=== PATIENT | male | born 1995 ===

== ENCOUNTER 2024-11-18 04:58 | Inpatient (IN) | payer OTHER ==
[~2024-11-18] VITALS: Ht 182.9 cm; Wt 137.1 kg
--- NOTE | 2024-11-18 06:54 | ED.PDOC ---
History of Present Illness HPI Comments 29-year-old male presents to the ER with prior medical history of a possibility history of kidney stones and chief complaint of pelvic pain. Patient Reports on urinating 0330 this morning, then 0400 the patient had right pelvic pain. The patient is assumes the the pain is due from the kidney stones. Denies chills, fever, N/V/D, SOB, CP. No other associated symptoms, modifiers, recent injuries or sick contacts present at this time. Chief Complaint: Pelvic Pain Time Seen by MD: 06:30 Reviewed Notes: Nurses Notes, Medications, Allergies Allergies: Coded Allergies: NO KNOWN ALLERGIES (Unverified , 11/18/24) Information Source: Patient Mode of Arrival: Ambulatory Severity: Moderate Timing: Hours Duration: Since onset, Hours Prehospital treatment: None Past Medical History Past Medical History (Other): Possible history of kidney stones Surgical History: Denies all surgeries Family History Family History: Reviewed,noncontributory to illness, Unknown Social History Smoker: Non-Smoker Alcohol: Denies ETOH Use Drugs: Denies Drug Use Lives In: Home Constitutional: denies: chills, diaphoresis, fatigue, fever, malaise, sweats, weakness, others EENTM: denies: blurred vision, double vision, ear bleeding, ear discharge, ear drainage, ear pain, ear ringing, eye pain, eye redness, hearing loss, mouth pain, mouth swelling, nasal discharge, nose bleeding, nose congestion, nose pain, photophobia, tearing, throat pain, throat swelling, voice changes, others Respiratory: denies: cough, hemoptysis, orthopnea, SOB at rest, shortness of breath, SOB with excertion, stridor, wheezing, others Cardiovascular: denies: chest pain, dizzy spells, diaphoresis, Dyspnea on exertion, edema, irregular heart beat, left arm pain, lightheadedness, palpitations, PND, syncope, others Gastrointestinal: denies: abdomen distended, abdominal pain, blood streaked bowels, constipated, diarrhea, dysphagia, difficulty swallowing, hematemesis, melena, nausea, poor appetite, poor fluid intake, rectal bleeding, rectal pain, vomiting, others Genitourinary: reports: others (Pelvic pain); denies: burning, dysuria, flank pain, frequency, hematuria, incontinence, penile discharge, penile sore, pain, testicle pain, testicle swelling, urgency Neurological: denies: dizziness, fainting, headache, left sided numbness, left sided weakness, numbness, paresthesia, pre-existing deficit, right sided numbness, right sided weakness, seizure, speech problems, tingling, tremors, weakness, others Musculoskeletal: denies: back pain, gout, joint pain, joint swelling, muscle pain, muscle stiffness, neck pain, others Integumetry: denies: bruises, change in color, change in hair/nails, dryness, laceration, lesions, lumps, rash, wounds, others Allergic/Immunocompromised: denies: Difficulty Healing, Frequent Infections, Hives, Itching, others Hematologic/Lymphatic: denies: anemia, blood clots, easy bleeding, easy bruising, swollen glands, others Endocrine: denies: excessive hunger, excessive sweating, excessive thirst, excessive urination, flushing, intolerance to cold, intolerance to heat, unexplained weight gain, unexplained weight loss, others Psychiatric: denies: anxiety, bipolar disorder, depression, hopeless, panic disorder, schizophrenia, sleepless, suicidal, others All Other Systems: Reviewed and Negative Physical Exam General Appearance: Moderate Distress, Obese HEENT: Normal ENT Inspection, Pharynx Normal, TMs Normal Neck: Full Range of Motion, Non-Tender, Normal, Normal Inspection Respiratory: Chest Non-Tender, Lungs Clear, No Accessory Muscle Use, No Respira tory Distress, Normal Breath Sounds Cardiovascular: No Edema, No JVD, No Murmur, No Gallop, Normal Peripheral Pulses, Regular Rate/Rhythm Breast Exam: Deferred Gastrointestinal: Diffuse, No Organomegaly, No Pulsatile Mass, Normal Bowel Sounds, Soft Genitalia: Deferred Pelvic: Deferred Rectal: Deferred Extremities: No calf tenderness, Normal capillary refill, Normal inspection, Normal range of motion, Non-tender, No pedal edema Musculoskeletal : Apperance: Normal Neurologic: Alert, 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 Was a procedure done?: No Differential Dx Considerations may include: Kidney stone Electrolyte imbalance X-Ray, Labs, Meds, VS Vital Signs Date Time Temp Pulse Resp B/P (MAP) Pulse Ox O2 Delivery O2 Flow Rate FiO2 11/18/24 07:56 79 19 96 Room Air* 0 21 11/18/24 07:27 64 17 139/77 (97) 95 11/18/24 05:07 98.4 74 16 151/88 (109) 98 98.4 Lab Test 11/18/24 07:00 11/18/24 05:47 Range/Units White Blood Count 6.4 4.4-10.8 10^3/uL Red Blood Count 5.56 4.5-5.90 10^6/uL Hemoglobin 15.7 13.5-17.5 g/dL Hematocrit 45.4 41.0-53.0 % Mean Corpuscular Volume 81.5 80.0-100.0 fL Mean Corpuscular Hemoglobin 28.2 28.0-32.0 pg Mean Corpuscular Hemoglobin Concent 34.6 32.0-36.0 g/dL Red Cell Distribution Width 13.6 11.8-14.3 % Platelet Count 290 140-450 10^3/uL Mean Platelet Volume 6.5 L 6.9-10.8 fL Neutrophils (%) (Auto) 53.8 37.0-80.0 % Lymphocytes (%) (Auto) 36.4 10.0-50.0 % Monocytes (%) (Auto) 6.7 0.0-12.0 % Eosinophils (%) (Auto) 2.4 0.0-7.0 % Basophils (%) (Auto) 0.7 0.0-2.0 % Neutrophils # (Auto) 3.5 1.6-8.6 10 ^3/uL Lymphocytes # (Auto) 2.3 0.4-5.4 10 ^3/uL Monocytes # (Auto) 0.4 0-1.3 10 ^3/uL Eosinophils # (Auto) 0.2 0-0.8 10 ^3/uL Basophils # (Auto) 0 0-0.2 10 ^3/uL Nucleated Red Blood Cells 0.1 % Sodium Level 141 136-145 mmol/L Potassium Level 4.2 3.5-5.1 mmol/L Chloride Level 107 98-107 mmol/L Carbon Dioxide Level 27 20-31 mmol/L Anion Gap 7 5-15 Blood Urea Nitrogen 14 9-23 mg/dL Creatinine 0.89 0.700-1.30 mg/dL Glomerular Filtration Rate Calc 118 >90 mL/min BUN/Creatinine Ratio 15.7 10.0-20.0 Serum Glucose 106 74-106 mg/dL Calcium Level 10.2 8.7-10.4 mg/dL Urine Color Pending Urine Clarity Pending Urine pH Pending Urine Specific [place] Pending Urine Protein Pending Urine Ketones Pending Urine Blood Pending Urine Nitrite Pending Urine Bilirubin Pending Urine Urobilinogen Pending Urine Leukocyte Esterase Pending Urine RBC Pending Urine Microscopic WBC Pending Urine Squamous Epithelial Cells Pending Urine Bacteria Pending Urine Glucose Pending Current Medications Medications (Trade) Dose Ordered Sig/Ban Route Start Time Stop Time Status Last Admin Sodium Chloride 1,000 ml @ 1,000 mls/hr Q1H ONCE IV 11/18/24 07:00 11/18/24 07:59 DC 11/18/24 07:50 Ketorolac Tromethamine (Toradol Injection) 30 mg ONCE ONCE IV 11/18/24 07:00 11/18/24 07:01 DC 11/18/24 07:54 Ondansetron HCl (Zofran) 4 mg ONCE ONCE IV 11/18/24 07:00 11/18/24 07:01 DC 11/18/24 07:50 Patient alert. Complaining of abdominal pain. Vitals stable. Answering questions. Establish intravenous access. Was given fluids. Was given Toradol. Was given Zofran. WBC within normal limits. Hemoglobin within normal limits. Possible kidney stone. Explained to the patient. Continue monitoring. Time of 1ST Reevaluation: 07:00 Reevaluation 1ST: Unchanged Patient Education/Counseling: Diagnosis, Treatment, Prognosis Family Education/Counseling: No Family Present SEPSIS Sepsis Screen Date sepsis recognized/suspect: Nov 18, 2024 Time Sepsis recognized/suspect: 0502 Recent Procedure: No On Antibiotic Therapy: No Respiratory Rate >20: No Heart Rate >90: No Temp<36 C (96.8 F) or >38.3 C: No SBP <90 or MAP <65 mmHG: No New Acute Mental Status Change: No Is the patient on CPAP, BIPAP,: No Physician Orders Urinalysis (11/18/24 05:47) Chlamydia/Gc Amplification (11/18/24 05:47) Vital Signs Date Time Temp Pulse Resp B/P (MAP) Pulse Ox O2 Delivery O2 Flow Rate FiO2 11/18/24 07:56 79 19 96 Room Air* 0 21 11/18/24 07:27 64 17 139/77 (97) 95 11/18/24 05:07 98.4 74 16 151/88 (109) 98 98.4 Laboratory Tests Test 11/18/24 07:00 White Blood Count 6.4 10^3/uL (4.4-10.8) Medications Medications Dose Ordered Sig/Ban Route Start Time Stop Time Status Last Admin Dose Admin Ketorolac Tromethamine 30 mg ONCE ONCE IV 11/18/24 07:00 11/18/24 07:01 DC 11/18/24 07:54 Ondansetron HCl 4 mg ONCE ONCE IV 11/18/24 07:00 11/18/24 07:01 DC 11/18/24 07:50 Sodium Chloride 1,000 ml @ 1,000 mls/hr Q1H ONCE IV 11/18/24 07:00 11/18/24 07:59 DC 11/18/24 07:50 Departure 1 Departure Time of Disposition: 08:16 Impression: Primary Impression: Acute abdominal pain Disposition: 09 ADMITTED INPATIENT Admit to: Med Surg Condition: Guarded Critical Care Note Critical Care Time?: No Stability Stability form required: No Heart Score Heart Score: Heart Score Response (Comments) Value History N/A 0 EKG N/A 0 Age N/A 0 Risk Factors N/A 0 Troponin N/A 0 Total 0 I personally scribed for BRISSA GALDAMEZ MD ([email or web address]) on 11/18/24 at 06:53. Electronically submitted by Erwin Mcneill ([email or web address]). BRISSA GALDAMEZ MD Nov 18, 2024 06:53
[2024-11-18 07:16] LABS: Hematocrit 45.4 % (41.0-53.0); Hemoglobin 15.7 g/dL (13.5-17.5); Mean Corpuscular Hemoglobin 28.2 pg (28.0-32.0); Mean Corpuscular Volume 81.5 fL (80.0-100.0); Nucleated Red Blood Cells % 0.1 %
[2024-11-18 07:22] LABS: Chloride 107 mmol/L (98-107); Potassium 4.2 mmol/L (3.5-5.1); Sodium 141 mmol/L (136-145)
[2024-11-18 07:23] LABS: Anion Gap 7 (5-15); Calcium 10.2 mg/dL (8.7-10.4); Carbon Dioxide 27 mmol/L (20-31)
[2024-11-18 07:28] LABS: BUN/Creatinine Ratio 15.7 (10.0-20.0); Blood Urea Nitrogen 14 mg/dL (9-23); Glucose 106 mg/dL (74-106)
[2024-11-18] MEDS: ONDANSETRON HCL 4 MG/2 ML VIAL IV ONE (07:50)
[2024-11-18] MEDS: SODIUM CHLORIDE 0.9% 1,000 ML IV ONE ×3 (07:50→12:53)
[2024-11-18] MEDS: KETOROLAC TROMETH 30 MG/ML 1ML VIAL IV ONE (07:54)
[2024-11-18 07:56] VITALS: PULSE 79; RESP 19; O2SAT 96
[2024-11-18 08:16] LABS: Urine Amorphous Crystal FEW /hpf (None Seen); Urine Protein, UAD 1+ (Negative)
--- NOTE | 2024-11-18 09:13 | DVH ---
Exam: CT CT AB PEL WO CON-NO ORAL OR IV History: stone Comparison Study: None Technique: Multidetector spiral CT of the abdomen was performed from lung bases to pubic symphysis. I maging was performed without IV contrast. Axial, coronal and sagittal multiplanar reformats were obta ined from the axial data set by the technologist. Radiation Dose : 1. Abdomen/Pelvis: CTDIvol 26.83 mGy, DLP 1730.6 mGy*cm. Findings: Evaluation of solid organs is limited due to lack of intravenous contrast use. Lung Bases: No acute or significant lung base finding. Normal heart size. No pleural or pericardial effusion. Liver: Hepatic steatosis. Gallbladder and Biliary Tree: Unremarkable Spleen: Unremarkable Pancreas: The pancreas is grossly normal in appearance. Adrenal Glands: Unremarkable Kidneys: Left kidney is unremarkable. Moderate right hydroureteronephrosis with 0.3 cm obstructing s tone in the proximal right ureter (HU 189). Bladder: Grossly unremarkable for degree of distention. Bowel: The stomach is grossly normal in appearance. Small bowel and colon are normal in caliber and d istribution. The appendix is not visualized; however, no secondary findings of acute appendicitis melissa ntified. Ascites: Absent Lymphadenopathy: No mesenteric, retroperitoneal or periportal lymphadenopathy. Abdominal Wall and Mesentery: Small fat containing left inguinal hernia. Vasculature: The visualized abdominal aorta is normal in size and caliber. Evaluation of abdominal a nd pelvic vessels is limited due to lack of intravenous contrast. Pelvic Organs: Unremarkable Musculoskeletal: No aggressive focal bony lesions, acute fractures or dislocation. IMPRESSION: Moderate right hydroureteronephrosis with 0.3 cm obstructing stone in the proximal right ureter (HU 1 89).
[2024-11-18] MEDS ORDERED: KETOROLAC TROMETH 30 MG/ML 1ML VIAL IV PRN (11:45)
[2024-11-18] MEDS ORDERED: DOCUSATE SOD 100 MG CAP PO PRN (11:45)
[2024-11-18] MEDS ORDERED: ONDANSETRON HCL 4 MG/2 ML VIAL IV PRN (11:45)
[2024-11-18] MEDS ORDERED: HYDROcodone-ACET 5/325MG TAB PO PRN (11:45)
[2024-11-18] MEDS ORDERED: LOSA-534 PO (11:59)
--- NOTE | 2024-11-18 12:13 | DVHHP2 ---
History of Present Illness Reason for Visit: Pelvic pain History of Present Illness Norm Early is a 29-year-old male with past medical history of hypertension who came to the hospital for pelvic pain. Patient states the pain began about 0400 in his RLQ/pelvic area. He states the pain was severe and not improving prompting him to come to the hospital. About 2 months ago he was at the doctor and told he has a right sided kidney stone, but that it was not obstructing or causing problems at that time. Cardiovascular: HTN Past Surgical History: Tonsillectomy Family History: None Smoke: No ALCOHOL: none Drugs: None Lives: with Family Domestic Violence: Neg Review of Systems Constitutional: No: Fever, Chills, Sweats, Weakness, Malaise, Other Eyes: No: Pain, Vision change, Conjunctivae inflammation, Eyelid inflammation, Other, Redness ENT: No: Ear pain, Ear discharge, Nose pain, Nose discharge, Nose congestion, Mouth pain, Mouth swelling, Throat pain, Throat swelling, Other Respiratory: No: Cough, Dry, Shortness of breath, SOB with excertion, Wheezing, Hemoptysis, Pleuritic Pain, Sputum, Wheezing, Other Cardiovascular: No: Chest Pain, Palpitations, Orthopnea, Paroxysmal Noc. Dyspnea, Edema, Lt Headedness, Other Gastrointestinal: Abdominal Pain (pelvic/RLQ); No: Nausea, Vomiting, Diarrhea, Constipation, Melena, Hematochezia, Other Genitourinary: No Dysuria, No Frequency, No Incontinence, No Hematuria, No Retention, No Other Musculoskeletal: back pain (right flank); No: other, neck pain, shoulder pain, arm pain, hand pain, leg pain, foot pain Skin: No: Rash, Lesions, Jaundice, Bruising, Other Neurological: No: Weakness, Numbness, Incoordination, Change in speech, Confusion, Seizures, Other Allergies: Coded Allergies: NO KNOWN ALLERGIES (Unverified , 11/18/24) Medications Current Medications Medications Dose Ordered Sig/Ban Route Start Time Stop Time Status Last Admin Dose Admin Acetaminophen/ Hydrocodone Bitart 1 tab Q4HP PRN PO 11/18/24 11:45 UNV Ondansetron HCl 4 mg Q4HP PRN IV 11/18/24 11:45 UNV Docusate Sodium 100 mg BIDPRN PRN PO 11/18/24 11:45 UNV Acetaminophen 650 mg Q6HP PRN PO 11/18/24 11:45 UNV Ketorolac Tromethamine 30 mg Q6HPRN PRN IV 11/18/24 11:45 11/23/24 11:44 UNV Exam Vital Signs Vital Signs Date Time Temp Pulse Resp B/P (MAP) Pulse Ox O2 Delivery O2 Flow Rate FiO2 11/18/24 09:24 97.6 62 16 124/71 (88) 99 97.6 11/18/24 07:56 Room Air* 0 21 General Appearance: Alert, Oriented X3, Cooperative, mild distress HEENT: Atraumatic, PERRLA, Mucous membr. moist/pink Respiratory: Clear to auscultation, Normal air movement Cardiovascular: Regular rate, Normal S1, Normal S2, No murmurs Abdominal: Normal bowel sounds, Soft, No hepatospenomegaly, Other (RLQ/pelvic pain) Extremities: No clubbing, No cyanosis, No edema, Normal pulses Skin: No rashes, No breakdown, No significant lesion Neuro: Normal gait, Normal speech, Strength at 5/5 X4 ext Psych/Mental Status: Mental status NL, Mood NL Labs/Xrays Labs Test 11/18/24 07:00 11/18/24 05:47 Range/Units White Blood Count 6.4 4.4-10.8 10^3/uL Red Blood Count 5.56 4.5-5.90 10^6/uL Hemoglobin 15.7 13.5-17.5 g/dL Hematocrit 45.4 41.0-53.0 % Mean Corpuscular Volume 81.5 80.0-100.0 fL Mean Corpuscular Hemoglobin 28.2 28.0-32.0 pg Mean Corpuscular Hemoglobin Concent 34.6 32.0-36.0 g/dL Red Cell Distribution Width 13.6 11.8-14.3 % Platelet Count 290 140-450 10^3/uL Mean Platelet Volume 6.5 L 6.9-10.8 fL Neutrophils (%) (Auto) 53.8 37.0-80.0 % Lymphocytes (%) (Auto) 36.4 10.0-50.0 % Monocytes (%) (Auto) 6.7 0.0-12.0 % Eosinophils (%) (Auto) 2.4 0.0-7.0 % Basophils (%) (Auto) 0.7 0.0-2.0 % Neutrophils # (Auto) 3.5 1.6-8.6 10 ^3/uL Lymphocytes # (Auto) 2.3 0.4-5.4 10 ^3/uL Monocytes # (Auto) 0.4 0-1.3 10 ^3/uL Eosinophils # (Auto) 0.2 0-0.8 10 ^3/uL Basophils # (Auto) 0 0-0.2 10 ^3/uL Nucleated Red Blood Cells 0.1 % Sodium Level 141 136-145 mmol/L Potassium Level 4.2 3.5-5.1 mmol/L Chloride Level 107 98-107 mmol/L Carbon Dioxide Level 27 20-31 mmol/L Anion Gap 7 5-15 Blood Urea Nitrogen 14 9-23 mg/dL Creatinine 0.89 0.700-1.30 mg/dL Glomerular Filtration Rate Calc 118 >90 mL/min BUN/Creatinine Ratio 15.7 10.0-20.0 Serum Glucose 106 74-106 mg/dL Calcium Level 10.2 8.7-10.4 mg/dL Urine Color Yellow Yellow Urine Clarity Turbid H Clear Urine pH 6.0 5.0-9.0 Urine Specific [place] 1.031 1.001-1.035 Urine Protein 1+ H Negative Urine Ketones Negative Negative Urine Blood 3+ H Negative /uL Urine Nitrite Negative Negative Urine Bilirubin Negative Negative Urine Urobilinogen Normal Negative mg/dL Urine Leukocyte Esterase Negative Negative /uL Urine RBC 311 0 - 3 /hpf Urine Microscopic WBC 2 0-3 /HPF Urine Squamous Epithelial Cells None seen <5 /hpf Urine Amorphous Crystals Few None Seen /hpf Urine Bacteria None seen None Seen /hpf Urine Mucus Few None Seen Urine Glucose Normal Normal mg/dL Exam: CT CT AB PEL WO CON-NO ORAL OR IV Findings: Evaluation of solid organs is limited due to lack of intravenous contrast use. Lung Bases: No acute or significant lung base finding. Normal heart size. No pleural or pericardial effusion. Liver: Hepatic steatosis. Gallbladder and Biliary Tree: Unremarkable Spleen: Unremarkable Pancreas: The pancreas is grossly normal in appearance. Adrenal Glands: Unremarkable Kidneys: Left kidney is unremarkable. Moderate right hydroureteronephrosis with 0.3 cm obstructing stone in the proximal right ureter (HU 189). Bladder: Grossly unremarkable for degree of distention. Bowel: The stomach is grossly normal in appearance. Small bowel and colon are normal in caliber and distribution. The appendix is not visualized; however, no secondary findings of acute appendicitis identified. Ascites: Absent Lymphadenopathy: No mesenteric, retroperitoneal or periportal lymphadenopathy. Abdominal Wall and Mesentery: Small fat containing left inguinal hernia. Vasculature: The visualized abdominal aorta is normal in size and caliber. Evaluation of abdominal and pelvic vessels is limited due to lack of intravenous contrast. Pelvic Organs: Unremarkable Musculoskeletal: No aggressive focal bony lesions, acute fractures or dislocation. IMPRESSION: Moderate right hydroureteronephrosis with 0.3 cm obstructing stone in the proximal right ureter (HU 189). SEPSIS Sepsis Screen Date sepsis recognized/suspect: Nov 18, 2024 Time Sepsis recognized/suspect: 0502 Recent Procedure: No On Antibiotic Therapy: No Respiratory Rate >20: No Heart Rate >90: No Temp<36 C (96.8 F) or >38.3 C: No SBP <90 or MAP <65 mmHG: No New Acute Mental Status Change: No Is the patient on CPAP, BIPAP,: No Physician Orders Chlamydia/Gc Amplification (11/18/24 05:47) Ct Ab Pel Wo Con-No Oral Or Iv (11/18/24 08:17) Admit (11/18/24 11:44) Code Status (11/18/24 11:44) 2 Gm Sodium Diet (11/18/24 Lunch) Hydrocodone-Acet 5/325mg Tab ([place] 5/32 (11/18/24 11:45) Ondansetron Hcl (Zofran) (11/18/24 11:45) Docusate Sodium Capsule (Colace Capsule) (11/18/24 11:45) Complete Blood Count (11/19/24 04:00) Comprehensive Metabolic Panel (11/19/24 04:00) Condition: Serious (11/18/24 11:44) Acetaminophen Tablet (Tylenol Tablet) (11/18/24 11:45) Ketorolac Injection (Toradol Injection) (11/18/24 11:45) Sodium Chloride 0.9% (11/18/24 11:45) Sodium Chloride 0.9% (11/18/24 11:45) Tamsulosin Hydrochloride (Flomax) (11/18/24 11:45) Tamsulosin Hydrochloride (Flomax) (11/19/24 18:00) * Urology Consult (11/18/24 11:50) Vital Signs Date Time Temp Pulse Resp B/P (MAP) Pulse Ox O2 Delivery O2 Flow Rate FiO2 11/18/24 09:24 97.6 62 16 124/71 (88) 99 97.6 11/18/24 07:56 79 19 96 Room Air* 0 21 11/18/24 07:27 64 17 139/77 (97) 95 11/18/24 05:07 98.4 74 16 151/88 (109) 98 98.4 Laboratory Tests Test 11/18/24 07:00 White Blood Count 6.4 10^3/uL (4.4-10.8) Medications Medications Dose Ordered Sig/Ban Route Start Time Stop Time Status Last Admin Dose Admin Ketorolac Tromethamine 30 mg ONCE ONCE IV 11/18/24 07:00 11/18/24 07:01 DC 11/18/24 07:54 30 MG Ondansetron HCl 4 mg ONCE ONCE IV 11/18/24 07:00 11/18/24 07:01 DC 11/18/24 07:50 4 MG Sodium Chloride 1,000 ml @ 1,000 mls/hr Q1H ONCE IV 11/18/24 07:00 11/18/24 07:59 DC 11/18/24 07:50 1,000 MLS/HR Assessment/Plan Assessment/Plan Assessment: Hydronephrosis due to ureter obstruction, Renal calculi, Hypertension, Plan: Admit to Med-Surg, Urology consult, IV hydration, Flomax, Pain management, Consider IR consult if symptoms do not improve, Home medications reconciled, Plan discussed with: Patient My Orders Orders - STELLA AMAYA EQUIPMENT SPECIALIST Procedure Category Date Status Time Admit ADMIT 11/18/24 Transmitted 11:44 Code Status CODE 11/18/24 Transmitted 11:44 2 Gm Sodium Diet DIET 11/18/24 Transmitted Lunch Hydrocodone-Acet PHA 11/18/24 Logged 5/325mg Tab ([place] 11:45 Ondansetron Hcl PHA 11/18/24 Logged (Zofran) 11:45 Docusate Sodium PHA 11/18/24 Logged Capsule (Colace 11:45 Complete Blood Count LAB 11/19/24 Verified 04:00 Comprehensive LAB 11/19/24 Verified Metabolic Panel 04:00 Condition: Serious STEPHEN 11/18/24 In Process 11:44 Acetaminophen Tablet PHA 11/18/24 Logged (Tylenol Tablet) 11:45 Ketorolac Injection PHA 11/18/24 Logged (Toradol Injection) 11:45 Sodium Chloride 0.9% PHA 11/18/24 Logged 11:45 Sodium Chloride 0.9% PHA 11/18/24 Logged 11:45 Tamsulosin PHA 11/18/24 Logged Hydrochloride (Flomax) 11:45 Tamsulosin PHA 11/19/24 Logged Hydrochloride (Flomax) 18:00 * Urology Consult CONS 11/18/24 Transmitted 11:50 Date of Service: Nov 18, 2024 Billing Provider: STELLA AMAYA Common Visit Codes: [id number] INP/OBS CARE (MOD) STELLA AMAYA Nov 18, 2024 12:13
[2024-11-18 12:27] VITALS: BP 133/84; PULSE 54; RESP 16; TEMP 97.4; O2SAT 100
[2024-11-18] MEDS: TAMSULOSIN HYDROCHLORIDE 0.4 MG CAP PO ONE (12:52)
[2024-11-18 16:00] VITALS: BP 138/86; PULSE 63; RESP 16; TEMP 97.6; O2SAT 99
[2024-11-18 16:30] VITALS: BP 138/86; PULSE 63; RESP 16; TEMP 97.6; O2SAT 99
[2024-11-18] MEDS: ACETAMINOPHEN 325 MG TAB PO PRN (17:26)
[2024-11-18 20:00] VITALS: RESP 20
[2024-11-18 21:00] VITALS: BP 123/65; PULSE 70; RESP 17; TEMP 98; O2SAT 96
--- NOTE | 2024-11-18 23:07 | DVHINCON2 ---
Date of service: Nov 18, 2024 Referring Physician Hospitalist Reason for Consultation Hydronephrosis History of Present Illness 29-year-old male admitted to [facility] for chief complaint of pelvic pain. Patient Reports on urinating 0330 this morning, then 0400 the patient had right pelvic pain. The patient assumed the the pain is due from the kidney stones. Denies chills, fever, N/V/D, SOB, CP. No other associated symptoms, modifiers, recent injuries or sick contacts present at this time. Chief Complaint: Pelvic Pain Reviewed Notes: Nurses Notes, Medications, Allergies Allergies: Coded Allergies: NO KNOWN ALLERGIES (Unverified , 11/18/24) Information Source: Patient Mode of Arrival: Ambulatory Severity: Moderate Timing: Hours Duration: Since onset, Hours Prehospital treatment: None Past Medical History Possible history of kidney stones Family History: Cardiac disorder in father G8 FATHER Allergies: Coded Allergies: NO KNOWN ALLERGIES (Unverified , 11/18/24) Home Meds Reported Medications Losartan Potassium (Losartan Potassium) 50 Mg Tab, 1 TAB PO DAILY 11/18/24 Current Medications Current Medications Medications (Trade) Dose Ordered Sig/Ban Route PRN Reason Start Time Stop Time Status Last Admin Acetaminophen/ Hydrocodone Bitart (Royal 5/325MG Tab) 1 tab Q4HP PRN PO MODERATE PAIN (4-6 PAIN SCALE) 11/18/24 11:45 Ondansetron HCl (Zofran) 4 mg Q4HP PRN IV NAUSEA / VOMITING 11/18/24 11:45 Docusate Sodium (Colace Capsule) 100 mg BIDPRN PRN PO FOR CONSTIPATION 11/18/24 11:45 Acetaminophen (Tylenol Tablet) 650 mg Q6HP PRN PO PAIN SCALE 1-3 OR TEMP>100.4 11/18/24 11:45 11/18/24 17:26 Ketorolac Tromethamine (Toradol Injection) 30 mg Q6HPRN PRN IV SEVERE PAIN (7-10 PAIN SCALE) 11/18/24 11:45 11/23/24 11:44 Tamsulosin HCl (Flomax) 0.4 mg QPM PO 11/19/24 18:00 Losartan Potassium (Cozaar Tablet) 50 mg DAILY PO 11/19/24 10:00 Review of Systems Constitutional: denies: chills, diaphoresis, fatigue, fever, malaise, sweats, weakness, others EENTM: denies: blurred vision, double vision, ear bleeding, ear discharge, ear drainage, ear pain, ear ringing, eye pain, eye redness, hearing loss, mouth pain, mouth swelling, nasal discharge, nose bleeding, nose congestion, nose pain, photophobia, tearing, throat pain, throat swelling, voice changes, others Respiratory: denies: cough, hemoptysis, orthopnea, SOB at rest, shortness of breath, SOB with excertion, stridor, wheezing, others Cardiovascular: denies: chest pain, dizzy spells, diaphoresis, Dyspnea on exertion, edema, irregular heart beat, left arm pain, lightheadedness, palpitations, PND, syncope, others Gastrointestinal: denies: abdomen distended, abdominal pain, blood streaked bowels, constipated, diarrhea, dysphagia, difficulty swallowing, hematemesis, melena, nausea, poor appetite, poor fluid intake, rectal bleeding, rectal pain, vomiting, others Genitourinary: reports: others (Pelvic pain); denies: burning, dysuria, flank pain, frequency, hematuria, incontinence, penile discharge, penile sore, pain, testicle pain, testicle swelling, urgency Neurological: denies: dizziness, fainting, headache, left sided numbness, left sided weakness, numbness, paresthesia, pre-existing deficit, right sided numbness, right sided weakness, seizure, speech problems, tingling, tremors, weakness, others Musculoskeletal: denies: back pain, gout, joint pain, joint swelling, muscle pain, muscle stiffness, neck pain, others Integumetry: denies: bruises, change in color, change in hair/nails, dryness, laceration, lesions, lumps, rash, wounds, others Allergic/Immunocompromised: denies: Difficulty Healing, Frequent Infections, Hives, Itching, others Hematologic/Lymphatic: denies: anemia, blood clots, easy bleeding, easy bruising, swollen glands, others Endocrine: denies: excessive hunger, excessive sweating, excessive thirst, excessive urination, flushing, intolerance to cold, intolerance to heat, unexplained weight gain, unexplained weight loss, others Psychiatric: denies: anxiety, bipolar disorder, depression, hopeless, panic disorder, schizophrenia, sleepless, suicidal, others All Other Systems: Reviewed and Negative Vital Signs Vital Signs Date Time Temp Pulse Resp B/P (MAP) Pulse Ox O2 Delivery O2 Flow Rate FiO2 11/18/24 20:00 20 Room Air* 0 21 11/18/24 16:30 97.6 63 138/86 (103) 99 97.6 Physical Exam General Appearance: Moderate Distress, Obese HEENT: Normal ENT Inspection, Pharynx Normal, TMs Normal Neck: Full Range of Motion, Non-Tender, Normal, Normal Inspection Respiratory: Chest Non-Tender, Lungs Clear, No Accessory Muscle Use, No Respiratory Distress, Normal Breath Sounds Cardiovascular: No Edema, No JVD, No Murmur, No Gallop, Normal Peripheral Pulses, Regular Rate/Rhythm Breast Exam: Deferred Gastrointestinal: Diffuse, No Organomegaly, No Pulsatile Mass, Normal Bowel Sounds, Soft Genitalia: Deferred Pelvic: Deferred Rectal: Deferred Extremities: No calf tenderness, Normal capillary refill, Normal inspection, Normal range of motion, Non-tender, No pedal edema Musculoskeletal : Apperance: Normal Neurologic: Alert, independent consultant II-XII nml as Tested, No Motor Deficits, Normal Affect, Normal Mood, No Sensory Deficits Cerebellar Function: Normal Reflexes: Normal Skin: Dry, Normal Color, Warm Peripheral Pulses: 3+ Radial (R), 3+ Radial (L) Lymphatic: No Adenopathy Labs/Diagnostic Data Labs Test 11/18/24 07:00 11/18/24 05:47 Range/Units White Blood Count 6.4 4.4-10.8 10^3/uL Red Blood Count 5.56 4.5-5.90 10^6/uL Hemoglobin 15.7 13.5-17.5 g/dL Hematocrit 45.4 41.0-53.0 % Mean Corpuscular Volume 81.5 80.0-100.0 fL Mean Corpuscular Hemoglobin 28.2 28.0-32.0 pg Mean Corpuscular Hemoglobin Concent 34.6 32.0-36.0 g/dL Red Cell Distribution Width 13.6 11.8-14.3 % Platelet Count 290 140-450 10^3/uL Mean Platelet Volume 6.5 L 6.9-10.8 fL Neutrophils (%) (Auto) 53.8 37.0-80.0 % Lymphocytes (%) (Auto) 36.4 10.0-50.0 % Monocytes (%) (Auto) 6.7 0.0-12.0 % Eosinophils (%) (Auto) 2.4 0.0-7.0 % Basophils (%) (Auto) 0.7 0.0-2.0 % Neutrophils # (Auto) 3.5 1.6-8.6 10 ^3/uL Lymphocytes # (Auto) 2.3 0.4-5.4 10 ^3/uL Monocytes # (Auto) 0.4 0-1.3 10 ^3/uL Eosinophils # (Auto) 0.2 0-0.8 10 ^3/uL Basophils # (Auto) 0 0-0.2 10 ^3/uL Nucleated Red Blood Cells 0.1 % Sodium Level 141 136-145 mmol/L Potassium Level 4.2 3.5-5.1 mmol/L Chloride Level 107 98-107 mmol/L Carbon Dioxide Level 27 20-31 mmol/L Anion Gap 7 5-15 Blood Urea Nitrogen 14 9-23 mg/dL Creatinine 0.89 0.700-1.30 mg/dL Glomerular Filtration Rate Calc 118 >90 mL/min BUN/Creatinine Ratio 15.7 10.0-20.0 Serum Glucose 106 74-106 mg/dL Calcium Level 10.2 8.7-10.4 mg/dL Urine Color Yellow Yellow Urine Clarity Turbid H Clear Urine pH 6.0 5.0-9.0 Urine Specific [place] 1.031 1.001-1.035 Urine Protein 1+ H Negative Urine Ketones Negative Negative Urine Blood 3+ H Negative /uL Urine Nitrite Negative Negative Urine Bilirubin Negative Negative Urine Urobilinogen Normal Negative mg/dL Urine Leukocyte Esterase Negative Negative /uL Urine RBC 311 0 - 3 /hpf Urine Microscopic WBC 2 0-3 /HPF Urine Squamous Epithelial Cells None seen <5 /hpf Urine Amorphous Crystals Few None Seen /hpf Urine Bacteria None seen None Seen /hpf Urine Mucus Few None Seen Urine Glucose Normal Normal mg/dL PATIENT: MARIE ECHAVARRIA ACCT: [id number] UNIT: [id number] : 1995 LOC: ER ROOM / BED: / AGE / SEX: 29 / M ADM STATUS: REG ER SERVICE [id number] ORDERING PHYSICIAN: BRISSA GALDAMEZ MD PROCEDURE(s): ABPL - CT AB PEL WO CON-NO ORAL OR IV REASON: stone ORDER NUMBER(s): [id number], ACCESSION NUMBER(s): [id number] Exam: CT CT AB PEL WO CON-NO ORAL OR IV History: stone Comparison Study: None Technique: Multidetector spiral CT of the abdomen was performed from lung bases to pubic symphysis. Imaging was performed without IV contrast. Axial, coronal and sagittal multiplanar reformats were obtained from the axial data set by the technologist. Radiation Dose : 1. Abdomen/Pelvis: CTDIvol 26.83 mGy, DLP 1730.6 mGy*cm. Findings: Evaluation of solid organs is limited due to lack of intravenous contrast use. Lung Bases: No acute or significant lung base finding. Normal heart size. No pleural or pericardial effusion. Liver: Hepatic steatosis. Gallbladder and Biliary Tree: Unremarkable Spleen: Unremarkable Pancreas: The pancreas is grossly normal in appearance. Adrenal Glands: Unremarkable Kidneys: Left kidney is unremarkable. Moderate right hydroureteronephrosis with 0.3 cm obstructing stone in the proximal right ureter (HU 189). Bladder: Grossly unremarkable for degree of distention. Bowel: The stomach is grossly normal in appearance. Small bowel and colon are normal in caliber and distribution. The appendix is not visualized; however, no secondary findings of acute appendicitis identified. Ascites: Absent Lymphadenopathy: No mesenteric, retroperitoneal or periportal lymphadenopathy. Abdominal Wall and Mesentery: Small fat containing left inguinal hernia. Vasculature: The visualized abdominal aorta is normal in size and caliber. Evaluation of abdominal and pelvic vessels is limited due to lack of intravenous contrast. Pelvic Organs: Unremarkable Musculoskeletal: No aggressive focal bony lesions, acute fractures or dis location. IMPRESSION: Moderate right hydroureteronephrosis with 0.3 cm obstructing stone in the proximal right ureter (HU 189). ATED BY: LEON MONSIVAIS MD DICTATED DATE/TIME: 11/18/24909 SIGNED BY: LEON MONSIVAIS MD SIGNED DATE/TIME: 11/18/24909 CC: Assessment Right proximal ureteral stone, 3 mm Moderate right hydronephrosis Right flank pain Plan/Recommendation Expulsive measures with pain control Outpatient ESWL TBA if fail conservative management Plan discussed with: Patient, Other MATT LUONG MD Nov 18, 2024 23:07
[2024-11-18] MEDS: MANNITOL FTV 25% 12.5 GM/50 ML 50 ML IV ONE (23:44)
[2024-11-19 01:00] VITALS: BP 146/81; PULSE 61; RESP 17; TEMP 98.5; O2SAT 97
--- NOTE | 2024-11-19 01:14 | DVH ---
Exam: US BLADDER History: check for ureteral jetting Comparison: None Date: 11/18/2024 11:32 PM Number of images: 21 Technique: Grayscale and color Doppler ultrasound of the pelvis was obtained. Findings: The bladder wall appears thickened (5 mm) although it is not well distended. The urinary bladder cont ains 87.7 cc at the time of the study. The right ureteral jet is visualized. The left ureteral jet i s not visualized during this study. IMPRESSION: The left ureteral jet is not visualized during this study. The bladder wall appears thickened although it is not well distended.
[2024-11-19 05:00] VITALS: BP 131/77; PULSE 63; RESP 17; TEMP 98.4; O2SAT 97
[2024-11-19 07:11] LABS: Hematocrit 42.4 % (41.0-53.0); Hemoglobin 14.8 g/dL (13.5-17.5); Mean Corpuscular Hemoglobin 28.4 pg (28.0-32.0); Mean Corpuscular Volume 81.5 fL (80.0-100.0); Nucleated Red Blood Cells % 0.1 %
[2024-11-19 07:24] LABS: Albumin 4.0 g/dL (3.2-4.8); Alkaline Phosphatase 68 U/L (46-116); Anion Gap 8 (5-15); BUN/Creatinine Ratio 11.5 (10.0-20.0); Blood Urea Nitrogen 10 mg/dL (9-23); Calcium 9.6 mg/dL (8.7-10.4); Carbon Dioxide 26 mmol/L (20-31); Glucose 100 mg/dL (74-106); Potassium 4.1 mmol/L (3.5-5.1); Sodium 142 mmol/L (136-145); Total Protein 6.1 g/dL (5.7-8.2)
[2024-11-19 07:25] LABS: Alanine Aminotransferase 48 U/L (7-40); Bilirubin, Total 0.4 mg/dL (0.2-1.0); Chloride 108 mmol/L (98-107)
[2024-11-19 08:00] VITALS: PULSE 65; RESP 18
[2024-11-19 09:00] VITALS: BP 143/84; PULSE 84; RESP 18; TEMP 96.3; O2SAT 99
[2024-11-19] MEDS: LOSARTAN POTASSIUM 50 MG TAB PO SCH (09:19)
[2024-11-19 13:00] VITALS: BP 131/87; PULSE 63; RESP 18; TEMP 97.2; O2SAT 99
--- NOTE | 2024-11-19 13:44 | DVHPN2 ---
Progress Note - Dictate Date Seen: Nov 19, 2024 Medical Necessity Reason Pt with a Central, PICC or Fol: No Subjective pain controlled with oral meds vital signs Vital Sign Date Time Temp Pulse Resp B/P (MAP) Pulse Ox O2 Delivery O2 Flow Rate FiO2 11/19/24 09:19 143/84 11/19/24 09:00 96.3 84 18 99 96.3 11/19/24 08:00 Room Air* 0 21 Total Intake and Output 11/18/24 11/18/24 11/19/24 15:00 23:00 07:00 Intake Total 180 ml 1000 ml Output Total 0 ml 790 ml Balance 180 ml 210 ml medications Current Medications Medications Dose Ordered Sig/Ban Route Start Time Stop Time Status Last Admin Dose Admin Acetaminophen/ Hydrocodone Bitart 1 tab Q4HP PRN PO 11/18/24 11:45 Ondansetron HCl 4 mg Q4HP PRN IV 11/18/24 11:45 Docusate Sodium 100 mg BIDPRN PRN PO 11/18/24 11:45 Acetaminophen 650 mg Q6HP PRN PO 11/18/24 11:45 11/18/24 17:26 650 MG Ketorolac Tromethamine 30 mg Q6HPRN PRN IV 11/18/24 11:45 11/23/24 11:44 Tamsulosin HCl 0.4 mg QPM PO 11/19/24 18:00 Losartan Potassium 50 mg DAILY PO 11/19/24 10:00 11/19/24 09:19 50 MG laboratory and microbiology Laboratory Tests 11/19/24 05:59 Test 11/19/24 05:59 Range/Units Serum Glucose 100 74-106 mg/dL Assessment/Plan cleared from urology standpoint outpt f/u Problems(with codes): (1) Acute abdominal pain (2) Hydronephrosis due to obstruction of ureter ANANYA MANNING NP Nov 19, 2024 13:44
--- NOTE | 2024-11-19 14:30 | DVHPN2 ---
Reviewed: Care Plan Changes from previous H/P or p: No Changes General: Per HPI Eyes: No Pain, No Vision change, No Conjunctivae inflammation, No Eyelid inflammation, No Other, No Redness ENT: No Ear pain, No Ear discharge, No Nose pain, No Nose discharge, No Nose congestion, No Mouth pain, No Mouth swelling, No Throat pain, No Throat swelling, No Other Cardiovascular: No Chest Pain, No Palpitations, No Orthopnea, No Paroxysmal Noc. Dyspnea, No Edema, No Lt Headedness, No Other Respiratory: No Cough, No Dry, No Shortness of breath, No SOB with excertion, No Wheezing, No Hemoptysis, No Pleuritic Pain, No Sputum, No Other Gastrointestinal: No Nausea, No Vomiting; Abdominal Pain (pelvic/RLQ); No Diarrhea, No Constipation, No Melena, No Hematochezia, No Other Genitourinary: No Dysuria, No Frequency, No Incontinence, No Hematuria, No Retention, No Other Musculoskeletal: No other, No neck pain, No shoulder pain, No arm pain; back pain (right flank); No hand pain, No leg pain, No foot pain Skin: No Rash, No Lesions, No Jaundice, No Bruising, No Other Objective Vitals Vital Signs Date Time Temp Pulse Resp B/P (MAP) Pulse Ox O2 Delivery O2 Flow Rate FiO2 11/19/24 09:19 143/84 11/19/24 09:00 96.3 84 18 99 96.3 11/19/24 08:00 Room Air* 0 21 Intake/Output Intake and Output 11/19/24 07:00 Intake Total 1180 ml Output Total 790 ml Balance 390 ml Intake Oral 1180 ml Output Urine Total 790 ml General Appearance: Alert, Oriented X3, Cooperative Medications Current Medications Medications Dose Ordered Sig/Ban Route Start Time Stop Time Status Last Admin Dose Admin Acetaminophen/ Hydrocodone Bitart 1 tab Q4HP PRN PO 11/18/24 11:45 Ondansetron HCl 4 mg Q4HP PRN IV 11/18/24 11:45 Docusate Sodium 100 mg BIDPRN PRN PO 11/18/24 11:45 Acetaminophen 650 mg Q6HP PRN PO 11/18/24 11:45 11/18/24 17:26 650 MG Ketorolac Tromethamine 30 mg Q6HPRN PRN IV 11/18/24 11:45 11/23/24 11:44 Tamsulosin HCl 0.4 mg QPM PO 11/19/24 18:00 Losartan Potassium 50 mg DAILY PO 11/19/24 10:00 11/19/24 09:19 50 MG Laboratory Results Laboratory Tests 11/19/24 05:59 Chemistry Test 11/19/24 05:59 Albumin 4.0 g/dL (3.2-4.8) Calcium Level 9.6 mg/dL (8.7-10.4) Total Protein 6.1 g/dL (5.7-8.2) LFT Test 11/19/24 05:59 Alanine Aminotransferase (ALT) 48 U/L (7-40) H Alkaline Phosphatase 68 U/L (46-116) Aspartate Amino Transferase (AST) 24 U/L (13-40) Total Bilirubin 0.4 mg/dL (0.2-1.0) Urinalysis Test 11/18/24 05:47 Urine Color Yellow (Yellow) Urine Clarity Turbid (Clear) H Urine pH 6.0 (5.0-9.0) Urine Specific [place] 1.031 (1.001-1.035) Urine Protein 1+ (Negative) H Urine Ketones Negative (Negative) Urine Blood 3+ /uL (Negative) H Urine Nitrite Negative (Negative) Urine Bilirubin Negative (Negative) Urine Urobilinogen Normal mg/dL (Negative) Urine Leukocyte Esterase Negative /uL (Negative) Urine RBC 311 /hpf (0 - 3) Urine Microscopic WBC 2 /HPF (0-3) Urine Squamous Epithelial Cells None seen /hpf (<5) Urine Amorphous Crystals Few /hpf (None Seen) Urine Bacteria None seen /hpf (None Seen) Urine Mucus Few (None Seen) Urine Glucose Normal mg/dL (Normal) Labs and/or images reviewed: Labs reviewed by me, Image(s) reviewed by me Assessment/Plan Assessment/Plan Shwetha Earlyed is a 29-year-old male with past medical history of hypertension who came to the hospital for pelvic pain. Patient states the pain began about 0400 in his RLQ/pelvic area. He states the pain was severe and not improving prompting him to come to the hospital. About 2 months ago he was at the doctor and told he has a right sided kidney stone, but that it was not obstructing or causing problems at that time. Cardiovascular: HTN Hydronephrosis due to ureter obstruction, Renal calculi, Hypertension, Plan discussed with: Patient Date of Service: Nov 19, 2024 Billing Provider: PRATIMA NAVAS DO Common Visit Codes: [id number] INP/OBS CARE(HIGH) PRATIMA NAVAS DO Nov 19, 2024 14:30
[2024-11-19] MEDS ORDERED: TAMS-35 PO (15:04)
[2024-11-19 16:01] VITALS: BP 143/84; PULSE 68; RESP 18; TEMP 36.2; O2SAT 95
[2024-11-19] MEDS ORDERED: TAMSULOSIN HYDROCHLORIDE 0.4 MG CAP PO SCH (18:00)
--- NOTE | 2024-11-23 09:57 | DVHDS2 ---
Discharge Summary Date of Admission Nov 18, 2024 at 11:44 Date of Discharge: Nov 19, 2024 Labs/Diagnostic Data: Laboratory Results Test 11/19/24 05:59 11/18/24 05:47 White Blood Count 6.2 10^3/uL (4.4-10.8) Red Blood Count 5.19 10^6/uL (4.5-5.90) Hemoglobin 14.8 g/dL (13.5-17.5) Hematocrit 42.4 % (41.0-53.0) Mean Corpuscular Volume 81.5 fL (80.0-100.0) Mean Corpuscular Hemoglobin 28.4 pg (28.0-32.0) Mean Corpuscular Hemoglobin Concent 34.9 g/dL (32.0-36.0) Red Cell Distribution Width 13.4 % (11.8-14.3) Platelet Count 256 10^3/uL (140-450) Mean Platelet Volume 6.9 fL (6.9-10.8) Neutrophils (%) (Auto) 50.6 % (37.0-80.0) Lymphocytes (%) (Auto) 39.1 % (10.0-50.0) Monocytes (%) (Auto) 6.8 % (0.0-12.0) Eosinophils (%) (Auto) 2.9 % (0.0-7.0) Basophils (%) (Auto) 0.6 % (0.0-2.0) Neutrophils # (Auto) 3.1 10 ^3/uL (1.6-8.6) Lymphocytes # (Auto) 2.4 10 ^3/uL (0.4-5.4) Monocytes # (Auto) 0.4 10 ^3/uL (0-1.3) Eosinophils # (Auto) 0.2 10 ^3/uL (0-0.8) Basophils # (Auto) 0 10 ^3/uL (0-0.2) Nucleated Red Blood Cells 0.1 % Sodium Level 142 mmol/L (136-145) Potassium Level 4.1 mmol/L (3.5-5.1) Chloride Level 108 mmol/L (98-107) Carbon Dioxide Level 26 mmol/L (20-31) Anion Gap 8 (5-15) Blood Urea Nitrogen 10 mg/dL (9-23) Creatinine 0.87 mg/dL (0.700-1.30) Glomerular Filtration Rate Calc 119 mL/min (>90) BUN/Creatinine Ratio 11.5 (10.0-20.0) Serum Glucose 100 mg/dL (74-106) Calcium Level 9.6 mg/dL (8.7-10.4) Total Bilirubin 0.4 mg/dL (0.2-1.0) Aspartate Amino Transferase (AST) 24 U/L (13-40) Alanine Aminotransferase (ALT) 48 U/L (7-40) Alkaline Phosphatase 68 U/L (46-116) Total Protein 6.1 g/dL (5.7-8.2) Albumin 4.0 g/dL (3.2-4.8) Urine Color Yellow (Yellow) Urine Clarity Turbid (Clear) Urine pH 6.0 (5.0-9.0) Urine Specific [place] 1.031 (1.001-1.035) Urine Protein 1+ (Negative) Urine Ketones Negative (Negative) Urine Blood 3+ /uL (Negative) Urine Nitrite Negative (Negative) Urine Bilirubin Negative (Negative) Urine Urobilinogen Normal mg/dL (Negative) Urine Leukocyte Esterase Negative /uL (Negative) Urine RBC 311 /hpf (0 - 3) Urine Microscopic WBC 2 /HPF (0-3) Urine Squamous Epithelial Cells None seen /hpf (<5) Urine Amorphous Crystals Few /hpf (None Seen) Urine Bacteria None seen /hpf (None Seen) Urine Mucus Few (None Seen) Urine Glucose Normal mg/dL (Normal) Other Laboratory Tests 11/19/24 05:59 Brief Hx & Hospital Course: Norm Early is a 29-year-old male with past medical history of hypertension who came to the hospital for pelvic pain. Patient states the pain began about 0400 in his RLQ/pelvic area. He states the pain was severe and not improving prompting him to come to the hospital. About 2 months ago he was at the doctor and told he has a right sided kidney stone, but that it was not obstructing or causing problems at that time. Hydronephrosis due to ureter obstruction, Renal calculi, Hypertension, Condition at Discharge: Fair Final Diagnosis/Problems List see above Discharge Disposition: Home Discharge Instruct/Medications Diet: Cardiac 2g Na,low cholest Activity: No Restrictions, As Tolerated Scheduled Losartan Potassium (Losartan Potassium), 1 TAB PO DAILY, (Reported) Tamsulosin Hcl (Flomax), 0.4 MG PO QPM Discharge Statement: "Patient was advised to return to the ER or call 911 if any headaches, dizziness, shortness of breath, chest pain, abdominal pain, bleeding, fevers, or worsening of medical condition. Patient was counseled about treatment plan, medications, possible side effects, patientverbalized understanding. All questions were answered to the best of my ability. This discharge took greater then 30 minutes in planning, reviewing documentation, counseling the patient, and discussing with other team members." ASSESSMENT ASSESSMENT Assessment Date of Service: Nov 19, 2024 Billing Provider: PRATIMA NAVAS DO Common Visit Codes: 50370-KJW/OBS DISCH DAY >30min PRATIMA NAVAS DO Nov 23, 2024 09:57
== END 2024-11-19 16:20 | disposition home or self-care (01) | DRG 694 ==
LOC: ER 04:58 → OVERFLOW 11:44 → CENTRAL 16:13
PROVIDERS: ADMIT Internal Medicine; ATTEND Internal Medicine
DX: N13.2 Hydronephrosis with renal and ureteral calculous obstruction (principal); I10 Essential (primary) hypertension; Z82.49 Family history of ischemic heart disease and other diseases of the circulatory system; Z79.899 Other long term (current) drug therapy
CPT/HCPCS: 36415; 74176; 76857; 80048; 80053; 81001; 85025; 96374; G0378; J1885; J2405